=== PATIENT | female | born 1960 | race Caucasian/White ===

== ENCOUNTER 2020-01-31 15:10 | Emergency (ER) | payer OTHER ==
[~2020-01-31 15:10] MED LIST: Iopamidol-370 76% 500 ML 1 ML ONE
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
[2020-01-31] MEDS ORDERED: Morphine 4 MG/ML VIAL ONE (16:05)
== END 2020-01-31 17:40 | disposition home or self-care (01) ==
LOC: ERS 15:10
DX: S22.32XA Fracture of one rib, left side, initial encounter for closed fracture (principal); S30.1XXA Contusion of abdominal wall, initial encounter; V89.2XXA Person injured in unspecified motor-vehicle accident, traffic, initial encounter
CPT/HCPCS: 70450; 71260; 72125; 74177; 96374; G0390; J2270; Q9967